=== PATIENT | female | born 2000 | race Caucasian/White ===

== ENCOUNTER 2019-11-04 20:21 | Emergency (ER) | payer BC ==
[2019-11-04 21:30] LABS: #Basophils 0.1 thou/uL (0.0-0.2); #Eosinphils 0.1 thou/uL (0.0-0.7); #Lymphocytes 2.8 thou/uL (1.20-3.40); #Monocytes 0.6 thou/uL (0.11-0.59); #Neutrophils 6.5 thou/uL (1.40-6.50); %Basophils 0.5 % (0.0-1.0); %Eosinophils 1.4 % (0.0-10.0); %Monocytes 5.5 % (0.0-4.0); %Neutrophils 64.7 % (31.0-61.0); Hemoglobin 14.4 g/dL (12.0-16.0); Mean Corpuscular Hemoglobin 32.4 pg (25.0-35.0); Mean Corpuscular Volume 92.5 fL (78.0-98.0); Mean Platelet Volume 6.8 fL (7.4-10.4); Platelet Count 276 thou/uL (130-400); RBC Distribution Width 10.6 % (11.5-14.5); Red Blood Cell (RBC) Count 4.44 mill/uL (4.00-5.20)
[2019-11-04 21:32] LABS: Clarity Turbid (Clear)
[2019-11-04 21:33] LABS: Bilirubin Unable to Interpret (Negative); Blood, Urine Unable to Interpret (Negative); Glucose, Urine (Dipstick) Unable to Interpret mg/dL (Negative); Leukocyte Unable to Interpret Leu/uL (Negative); Nitrite Unable to Interpret (Negative); Protein, Urine (Dipstick) Unable to Interpret mg/dL (Neg-Trace); Urobilinogen UNABLE TO INTERPRET mg/dL (Less than 2)
[2019-11-04 21:36] LABS: Bacteria/HPF None Seen HPF (None Seen); Calcium Oxalate Crystals 2+ HPF (None Seen); Mucous/LPF 4+ LPF (<2+); RBC/HPF Greater than 50 HPF (0-3)
[2019-11-04 21:44] LABS: ALT (SGPT) 22 U/L (8-55); AST (SGOT) 15 U/L (5-34); Albumin 4.7 g/dL (3.5-5.0); Alkaline Phosphatase 58 U/L (40-100); Anion Gap 13 mmol/L (10-20); BUN (Urea Nitrogen) 14 mg/dL (7.0-18.7); Bilirubin, Total 0.4 mg/dL (0.2-1.2); Calc. Creatinine Clearance 0 mL/min (70-130); Calcium 9.6 mg/dL (7.8-10.44); Carbon Dioxide 25 mmol/L (22-29); Chloride 105 mmol/L (98-107); Estimated GFR-MDRD 66; Globulin 2.9 g/dL (2.4-3.5); Glucose 135 mg/dL (70-105); Potassium 3.7 mmol/L (3.5-5.1); Protein, Total 7.6 g/dL (6.0-8.3); Sodium 139 mmol/L (136-145)
[2019-11-04] MEDS ORDERED: Ondansetron PF 4 MG/2 ML Vial ONE (21:47)
[2019-11-04] MEDS ORDERED: Ketorolac Tromethamine 30 MG/ML VIAL ONE (21:47)
[2019-11-04 22:00] LABS: Pregnancy Test - Urine (BHCG) Negative (Negative); Pregu Control Background? CLEAR/WHITE (CLR/WHITE); Pregu Control Bar Appear? YES (CONTROL BAR); Specific Gravity 1.027 (1.002-1.036)
--- NOTE | 2019-11-04 22:44 | CT ---
CT Abdomen Pelvis WO Con HISTORY: History of kidney stones. Right flank pain. COMPARISON: None. FINDINGS: The lung bases are clear. The liver spleen pancreas and gallbladder regions all appear unremarkable. Right and left adrenal glands are normal. There is a punctate mid to upper pole right renal calculus and mild right-sided hydronephrosis and hydroureter related to a distal right ureteral calculus measuring the 3 to 4 mm range which appears be within the distal right ureter a few centimeters proxi mal to the right ureterovesical junction there is a second tiny punctate calcification at the level of the right ureteral pelvic junction which could potentially represent a second calculus. It is poss ible this is a small phlebolith adjacent to the ureter. There is no significant periaortic or mesenteric adenopathy. CT of pelvis performed without contrast enhancement: Trace free fluid is noted. The appendix is diffi cult to identify but I see no abnormality in this area. I see what I believe to be parts of the nondistended appendix. IMPRESSION: Single punctate mid pole right renal calculus. In addition there is mild to moderate righ t-sided hydronephrosis and hydroureter related to one and possibly 2 distal right ureteral calculi. One located approximately 3 cm proximal to the right ureterovesical junction measures in the 3 mm ran ge the second is slightly more distal to this and is punctate in size.
== END 2019-11-04 23:08 | disposition home or self-care (01) ==
LOC: ERS 20:21
DX: N13.2 Hydronephrosis with renal and ureteral calculous obstruction (principal); F41.9 Anxiety disorder, unspecified; Z79.899 Other long term (current) drug therapy
CPT/HCPCS: 74176; 80053; 81003; 81015; 81025; 85025; 96361; 96374; 96375; J1885; J2405